=== PATIENT | female | born 1960 | race Caucasian/White ===

== ENCOUNTER 2017-08-16 05:52 | Inpatient (IN) ==
--- NOTE | 2017-08-15 13:51 | Anesthesia Evaluation PreOp ---
Date of Encounter: 08/16/17 Time of Encounter: 06:56 - Past History Planned Operation: pericardial window Cardiac History: HTN, Hyperlipidemia, Other (pericardial effusion, mild pulmonary hypertension) Pulmonary History: Former smoker, COPD, BRITTANY Dx (BiPap 12) BEEF BREAKER History: Other (diabetic neuropathy b/l LE) Other Medical History: Diabetes Type II, Other (morbid obesity) Anesthesia History: No Prior Anesthetic Complications, Past Anesthesia ( ganglion cyst, foot surgery, C/S, tubal) : No Alcohol Use: none Drug use: none Medications and Allergies Atorvastatin [Lipitor] 40 mg PO HS 10/05/15 [History] Cholecalciferol (D-3) [Vitamin D] 2,000 unit PO DAILY 10/05/15 [History] Furosemide [Lasix] 20 mg PO DAILY 10/05/15 [History] Insulin Human Regular [HumuLIN R] 15 - 26 unit SQ ACHS 10/05/15 [History] Latanoprost [Xalatan] 1 drop BOTH EYES HS 10/05/15 [History] Levothyroxine [Synthroid] 25 mcg PO DAILY 10/05/15 [History] Losartan Potassium [Cozaar] 50 mg PO DAILY 10/05/15 [History] Naproxen [Naprosyn] 500 mg PO BID PRN 10/05/15 [History] Omeprazole [PriLOSEC] 20 mg PO DAILY 10/05/15 [History] Metformin HCl [Metformin HCl ER] 500 mg PO DAILY 01/12/17 [History] Pregabalin [Lyrica] 100 mg PO TID 01/12/17 [History] Sitagliptin Phos/Metformin HCl [Janumet Xr 100-1,000 mg Tablet] 1 cap PO DAILY 01/12/17 [History] Insulin Degludec [Tresiba Flextouch U-100] 34 - 36 unit SQ 0200,1400 08/16/17 [ History] 3 Allergy/AdvReac Type Severity Reaction Status Date / Time Penicillins AdvReac Severe Vomiting Verified 07/19/17 17:37 gabapentin [From Neurontin] AdvReac Intermediate Swelling Verified 07/19/17 17: 37 of Lip/Tongue/Throat acetaminophen [From Percocet] AdvReac Drowsy Verified 07/19/17 17:37 Oxycodone [From Percocet] AdvReac Drowsy Verified 07/19/17 17:37 - Meds/Allergy Pre-op Review Medications Reviewed: Yes Allergies Reviewed: Yes Beta Blockers on Current Med List: No Anesthesia Results - Labs Laboratory Tests 07/19/17 07/19/17 18:59 18:59 Hgb 12.9 Hct 40.6 Plt Count 200 Sodium 141 Potassium 3.4 L BUN 20 Creatinine 0.80 - Imaging Additional studies: echo: Impressions: LVEF 65%. Mild left ventricular diastolic dysfunction. Definity echo contrast was used. Mildly dilated RV with normal function. Mild-moderate tricuspid regurgitation. Borderline pulmonary hypertension. There is a moderate to large pericardial effusion present measuring the largest along the inferior border of the LV. There is no definite echocardiographic evidence of tamponade (Normal BP, normal IVC size and collapse, possible RA collapse present). Findings communicated to ordering provider. Recommend correlate clinically. Anesthesia Exam Selected Entries 08/16/17 06:20 Temperature 98.1 F Pulse Rate 87 Respiratory Rate 18 Blood Pressure 127/62 O2 Sat by Pulse Oximetry 94 Weight: BMI 52 138kg NPO (# of Hours): 8 - HEENT Pupil (Motor): EOMI Mallampati: III Teeth: Missing, Edentulous (upper), Poor dentition Oral Opening: Less than or equal to 3 - BEEF BREAKER LOC: Oriented BEEF BREAKER Motor: Normal RUE, Normal LUE, Normal RLE, Normal LLE, Normal Face BEEF BREAKER Sensory: Normal: RUE, LUE, RLE, LLE, Face - Cardiac Rhythm: Regular Murmur: None - Pulmonary Breath Sounds: bilateral Clear Respiratory Effort: Symmetrical Anesthesia Assess/Plan ASA Score: 3 Modified Danilo Scale for Level of Consciousness: Cooperative, oriented, and tranquil Anesthetic Plan: General Monitoring Plan: Standard Monitors, A-Line Recovery Plan: PACU (agrees to proceed)
[2017-08-16] MEDS ORDERED: Albuterol 2.5 MG/3 ML NEBULIZER IH ONE (06:20)
[2017-08-16] MEDS ORDERED: Ringers Solution, Lactated 1,000 ML IVC SCH ×3 (06:30→10:38)
[2017-08-16] MEDS ORDERED: *HR* PHENYLEPHRINE 1,000 MCG/10 ML SYRINGE IVP ONE (07:06)
[2017-08-16] MEDS ORDERED: *HR* Midazolam HCl 5 MG/5 ML VIAL IVP ONE (07:06)
[2017-08-16] MEDS ORDERED: *HR* Propofol 200 MG/20 ML VIAL IVP ONE (07:06)
[2017-08-16] MEDS ORDERED: *HR* Rocuronium Bromide 50 MG/5 ML VIAL ONE (07:06)
[2017-08-16] MEDS ORDERED: *HR* FentaNYL (PF) 250 MCG/5 ML VIAL ONE (07:06)
[2017-08-16] MEDS ORDERED: Lidocaine -MPF 1% 2 ML VIAL ONE (07:09)
[2017-08-16] MEDS ORDERED: Clindamycin 600 MG/50 ML 600 MG/50 ML IV.SOLN IVPB ONE (07:09)
[2017-08-16] MEDS ORDERED: Heparin 1,000 UNITS/500 mL 500 ML ONE (07:10)
--- NOTE | 2017-08-16 07:28 | History & Physical Report ---
Date of Encounter: 08/16/17 Time of Encounter: 07:28 24 Hour HP Update - Instructions Instructions: If the History and Physical is less than 30 days old and was completed prior to A.M. admission and or procedure and has NOT been updated on calendar day of procedure please complete this update prior to performing procedure. - Update Patient reports changes in Medical Condition: No Changes in examination, assessment, or condition: No Changes in Medication: No Preop tests/diagnostics Reviewed: Yes Pre-Op MRSA Screen: Negative Surgery Remains Indicated: Yes Consent for Planned Operative Procedure(s) Verified: Yes - Pre-Operative Checklist Preoperative Checklist Indicated: Yes Prophylactic Antibiotic Ordered: Yes Home Medications Include Beta Hermelinda: Yes Beta Hermelinda Taken Today (Day of Surgery): Yes Beta Hermelinda Taken Yesterday (Day Prior to Surgery): Yes Is VTE Prophylaxis Indicated?: Yes
--- NOTE | 2017-08-16 08:46 | Anesthesia Procedures ---
Date of Encounter: 08/16/17 Time of Encounter: 07:55 Procedures: Anesthesia - Arterial Line Consent obtained: written consent Time out performed: Yes Sedation: Versed (mg): 3 Sedation: Fentanyl (mcg): 100 Supplemental Oxygen via Nasal Cannula (L/min): 4 Size (Gauge): 20 Length (inches): 1 3/4 Technique Used: sterile prep, guide wire technique, direct puncture technique Post-Procedure: line taped into place, dry sterile dressing placed Patient tolerated procedure: well, no complications Complications: none Site: Radial L
[2017-08-16] MEDS ORDERED: Ondansetron 4 MG/2 ML VIAL ONE (08:50)
[2017-08-16] MEDS ORDERED: Dexamethasone 4 MG/ML VIAL ONE (08:50)
[2017-08-16] MEDS ORDERED: *HR* OxyCODONE/APAP 5/325 TABLET PO PRN (09:28)
[2017-08-16] MEDS ORDERED: Ketorolac 15 MG/ML VIAL IVP ONE (09:40)
[2017-08-16] MEDS ORDERED: Ketorolac 30 MG/ML VIAL IVP ONE (09:40)
[2017-08-16] MEDS ORDERED: Ondansetron 4 MG/2 ML VIAL IVP ONE ×2 (09:40→10:38)
[2017-08-16] MEDS ORDERED: Acetaminophen IV 1,000 MG/100 ML INFUS..BTL IVPB ONE (09:40)
[2017-08-16] MEDS ORDERED: Ondansetron 4 MG/2 ML VIAL IVP PRN ×2 (09:54→10:38)
[2017-08-16] MEDS ORDERED: Naloxone 0.4 MG/ML INJ IVP PRN ×3 (09:54→10:38)
[2017-08-16] MEDS ORDERED: *HR* OxyCODONE Immed Rel 5 MG TABLET PO PRN (09:58)
--- NOTE | 2017-08-16 10:04 | Operative Note ---
Date of procedure: 08/16/17 Was there an hotel assistant general manager present: No Estimated blood loss (cc): 20 Specimen: pericardium Condition: stable Disposition: PACU Procedure in Detail: Preoperative diagnosis. Pericardial effusion. Postoperative diagnosis. Same. Procedures. Subxiphoid pericardial window with removal of 400 mL of serosanguineous fluid. Also, pericardial biopsy. Surgeon. Dr. Neeraj Chaudhari. The patient is a 56-year-old female who presented with a pericardial effusion. She was referred for drainage. She was brought to the operating room where she underwent a general anesthetic and was prepped and draped in standard fashion. A standard subxiphoid incision was made. This was carried down using the Bovie electrocoagulation to the xiphoid process. We dissected underneath the xiphoid process and a retractor was placed. Dissection continued up to the pericardium. He was opened with a #15 blade. 400 mL of serosanguineous fluid was obtained. Some of the fluid was sent for cultures including aerobic, anaerobic, TB and fungus. Fluid was also sent for cytology. A finger was inserted. There was no tumor and no adhesions. A 32 right angle chest tube was placed in the pericardial well. Fascia was run with #1 Vicryl. Subcutaneous tissues with a 2-0 Vicryl. Skin was closed with 3-0 Vicryl subcuticular stitch. The patient tolerated the procedure well and was returned recovery room in satisfactory and stable condition.
--- NOTE | 2017-08-16 10:26 | Anesthesia Evaluation Post Op ---
Date of Encounter: 08/16/17 Time of Encounter: 10:25 - Vital Signs Vital Signs: Selected Entries 08/16/17 09:37 08/16/17 09:57 Temperature 98.0 F Pulse Rate 88 Respiratory Rate 15 Blood Pressure 160/89 O2 Sat by Pulse Oximetry 97 Oxygen Flow Rate (LPM) 35 - Lungs Lungs: Clear Ascult./Percussion - Airway Airway: Non-obstructed - Cardiovascular Regular Rate - Mental Status Mental Status: Alert & Oriented, Answers Appropriately - Pain Pain Scale: 2 Pain Scale used: Numeric (1 - 10) - Nausea Vomiting Nausea Vomiting: Not Present - Hydration Hydration: Ice chips, Has not voided - Discharge PostOp Status: Transfer Patient to floor
[2017-08-16] MEDS ORDERED: *HR* Dextrose 50 % in Water (Syg) 50 ML SYRINGE IVP PRN (10:38)
[2017-08-16] MEDS ORDERED: Dextrose Gel 15 GM/37.5 ML TUBE PO PRN ×2 (10:38)
[2017-08-16] MEDS ORDERED: D5% in Water 1,000 ML IVC PRN (10:38)
[2017-08-16 11:17] LABS: Basophils # 0.1 K/mcL (0.0-0.2); Basophils % 0.7 %; Eosinophils # 0.1 K/mcL (0.0-0.6); Eosinophils % 0.7 %; Hematocrit 43.9 % (35.3-44.9); Hemoglobin 13.7 g/dL (11.5-15.4); Lymphocytes # 1.3 K/mcL (0.6-4.6); Lymphocytes % 12.1 %; Mean Corpuscular HGB Conc 31.2 g/dL (31.6-35.5); Mean Corpuscular Hemoglobin 28.8 pg (28.0-33.3); Mean Corpuscular Volume 92.4 fL (83.0-100.0); Mean Platelet Volume 11.1 fL (9.4-12.4); Monocytes # 0.4 K/mcL (0.0-1.3); Monocytes % 3.9 %; Neutrophils # 8.5 K/mcL (1.6-8.9); Platelet Count 146 K/mcL (140-400); Red Blood Count 4.75 M/mcL (3.82-4.97); Red Cell Distribution Width 15.4 % (11.5-14.5); Segmented Neutrophils % 81.6 %
[2017-08-16] MEDS: Insulin LISPRO 300 UNITS/3 ML VIAL SQ SCH ×3 (12:13→21:14)
[2017-08-16] MEDS: *HR* OxyCODONE Immed Rel 5 MG TABLET PO PRN ×2 (14:13→21:13)
[2017-08-16] MEDS ORDERED: Pregabalin 50 MG CAPSULE PO SCH (15:00)
[2017-08-16] MEDS: Clindamycin 900 MG/50 ML 900 MG/50 ML IV.SOLN IVPB SCH (15:21)
[2017-08-16] MEDS ORDERED: Clindamycin 900 MG/50 ML 900 MG/50 ML IV.SOLN IVPB SCH (16:00)
[2017-08-16] MEDS: Ringers Solution, Lactated 1,000 ML IVC SCH (21:38)
[2017-08-17] MEDS: Pregabalin 50 MG CAPSULE PO SCH ×4 (00:14→22:38)
[2017-08-17] MEDS: Latanoprost 2.5 ML BOTTLE BOTH EYES SCH ×2 (00:15→22:38)
[2017-08-17] MEDS: Clindamycin 900 MG/50 ML 900 MG/50 ML IV.SOLN IVPB SCH (00:16)
[2017-08-17] MEDS: *HR* OxyCODONE Immed Rel 5 MG TABLET PO PRN ×3 (02:04→21:26)
[2017-08-17] MEDS: TRESIBA FLEXTOUCH U-100 SQ SCH ×2 (02:05→14:14)
[2017-08-17 05:39] LABS: Basophils % 0.3 %; Eosinophils % 0.1 %; Hemoglobin 13.7 g/dL (11.5-15.4); Immature Granulocytes % 0.3 % (0-4); Lymphocytes # 1.5 K/mcL (0.6-4.6); Mean Corpuscular HGB Conc 31.9 g/dL (31.6-35.5); Mean Corpuscular Hemoglobin 28.4 pg (28.0-33.3); Mean Corpuscular Volume 89.2 fL (83.0-100.0); Mean Platelet Volume 11.6 fL (9.4-12.4); Monocytes # 1.4 K/mcL (0.0-1.3); Monocytes % 9.2 %; Neutrophils # 12.1 K/mcL (1.6-8.9); Platelet Count 160 K/mcL (140-400); Red Blood Count 4.82 M/mcL (3.82-4.97); Red Cell Distribution Width 15.2 % (11.5-14.5); Segmented Neutrophils % 80.1 %
[2017-08-17 06:01] LABS: BUN/Creatinine Ratio 26 (6-26); Blood Urea Nitrogen 22 mg/dL (6-20); Calcium 8.7 mg/dL (8.6-10.3); Carbon Dioxide 25 mEq/L (23-29); Chloride 106 mEq/L (98-107); Glucose 303 mg/dL (70-105); Osmolality,Calculated 301 (280-300); Sodium 138 mEq/L (136-145); eGFR For African Americans > 60 (> 60); eGFR For Non-African Americans > 60 (> 60)
--- NOTE | 2017-08-17 07:26 | Cardiothoracic Progress Note ---
Date of Encounter: 08/17/17 Time of Encounter: 07:24 - Assessment and plan (1) Pericardial effusion Current Visit: Yes Status: Acute The assessment and plan as outlined above was discussed with the patient and/or family members who expressed understanding and agreement. All questions were answered. Hopefully, we can remove the chest tube tomorrow and the patient can be discharged. - Subjective Interval history: The patient states that she prefers to control her own blood sugars and give her own insulin. Vital Signs, Last 4 Hours Temp Pulse Resp BP Pulse Ox 08/17/17 07:17 97.8 F 80 18 113/42 92 08/17/17 04:08 98.3 F 71 16 115/54 92 Oxgyen Flow Rate Oxygen Flow Rate (LPM) 2 Clinical Data, last 8 Hours Output, Chest Tube Drainage 50 Amount [Anterior Chest #1] Output, Chest Tube Drainage 38 Amount [Anterior Chest #1] Weight 08/15/17 08/16/17 08/17/17 23:59 23:59 23:59 Weight 138.346 kg 139.9 kg Lungs are clear to percussion and auscultation. Heart is in a normal sinus rhythm with good heart tones. Chest tube drainage is minimal. Chest x-ray reveals no pneumothorax. - Labs 08/17/17 05:19 08/17/17 05:19 Lab Results, Last 24 hours 08/16/17 08/17/17 08/17/17 11:08 05:19 05:19 WBC 10.4 15.1 H Hgb 13.7 13.7 Hct 43.9 43.0 Plt Count 146 160 Sodium 138 Potassium 4.0 Chloride 106 Carbon Dioxide 25 BUN 22 H Creatinine 0.85 Glucose 303 H Calcium 8.7 - VTE Documentation of Mechanical Device: Intermittent pneumatic compression device Consult Discharge Plan - Plan Referrals: Art Cardona DO [Resident] - 08/25/17 10:15 am Neeraj Chaudhari MD [Partnered Physician] - 09/07/17 1:30 pm
[2017-08-17] MEDS: *HR* Metformin 500 MG TABLET PO SCH ×2 (08:06→17:33)
[2017-08-17] MEDS: Insulin LISPRO 300 UNITS/3 ML VIAL SQ SCH ×4 (08:06→21:05)
[2017-08-17] MEDS: Furosemide 20 MG TABLET PO SCH (08:07)
[2017-08-17] MEDS ORDERED: *HR* SitaGLIPtin 100 MG TABLET PO SCH (09:00)
[2017-08-17] MEDS ORDERED: *HR* Metformin 500 MG TABLET PO SCH (09:00)
[2017-08-17] MEDS ORDERED: NON-FORMULARY MEDICATION 1 EACH EACH (Sitagliptin Phos/Metformin Hcl [Janumet Xr 100-1,000 PO SCH (09:00)
[2017-08-17] MEDS: Levothyroxine 25 MCG TABLET PO SCH (11:05)
[2017-08-17] MEDS: Ringers Solution, Lactated 1,000 ML IVC SCH (21:01)
[2017-08-18] MEDS ORDERED: *HR* Metformin 500 MG TABLET PO SCH ×2
[2017-08-18] MEDS ORDERED: *HR* SitaGLIPtin 100 MG TABLET PO SCH
[2017-08-18] MEDS ORDERED: Latanoprost 2.5 ML BOTTLE BOTH EYES SCH
[2017-08-18] MEDS: Pregabalin 50 MG CAPSULE PO SCH ×2 (00:21→08:24)
[2017-08-18] MEDS: TRESIBA FLEXTOUCH U-100 SQ SCH (02:19)
[2017-08-18] MEDS: *HR* OxyCODONE Immed Rel 5 MG TABLET PO PRN ×2 (02:26→08:38)
[2017-08-18] MEDS: Insulin LISPRO 300 UNITS/3 ML VIAL SQ SCH (08:49)
[2017-08-18] MEDS: Furosemide 20 MG TABLET PO SCH (08:50)
--- NOTE | 2017-08-18 09:13 | Discharge Summary ---
Orders not resulted at time of discharge: Pending orders 08/14/17 14:41 Red Blood Cells [BBK] Routine 08/16/17 08:38 AFB Culture, Body Fluid [TB] Routine Culture,Anaerobic [RM] Routine Culture,Body Fluid [RM] Routine Fungal Culture [MYC] Routine 08/16/17 08:39 Cytology [PTH] Routine 08/16/17 08:50 Surgical Pathology [PTH] Routine Date of Encounter: 08/18/17 Time of Encounter: 09:07 - Discharge Diagnosis (1) Pericardial effusion Priority: Primary Status: Acute - Hospital Course Hospital course: Ms. Suresh is a 56 year old female The patient is a 56-year-old female with a history of diabetes. She presented with a pericardial effusion which and been followed for 1 year. On 08/16/2017, I took her to the operating room for pericardial window with drainage of 400 mL of serosanguineous fluid and pericardial biopsy. The patient tolerated this procedure well. Postoperatively, she was placed on 2 N. On August 18 her chest tube was removed. Lungs were clear to percussion and auscultation. Heart was in a normal sinus rhythm with good heart tones. Her incision was healing well without signs of infection. 2 chest x-rays had revealed no pneumothorax. The patient's medications are on the [employer]. The only new medication was oxycodone for pain. I did check the [place] automated Rx reporting system. She was postoperative and was given a one-week supply. Appropriate precautions were given. She was treated to her and to her previous diabetic diet. She was to walk as much as possible, but to avoid heavy lifting for a total of 3 months after surgery. She was to avoid driving for 1 month. She was to follow-up and see me in the office in 4 weeks as directed. She was to follow up with her primary care doctor, her optician apprentice dispensing and her sewing machine assembler as directed. - Time Spent with Patient Total time spent providing and/or coordinating discharge services: - Discharge Medications Prescriptions: OxyCODONE Immed Rel [Roxicodone 5 MG] 5 mg PO Q4HR PRN 7 Days #20 tablet PRN Reason: Pain Home Medications: Atorvastatin [Lipitor] 40 mg PO HS 10/05/15 [History] Cholecalciferol (D-3) [Vitamin D] 2,000 unit PO DAILY 10/05/15 [History] Furosemide [Lasix] 20 mg PO DAILY 10/05/15 [History] Insulin Human Regular [HumuLIN R] 15 - 26 unit SQ ACHS 10/05/15 [History] Latanoprost [Xalatan] 1 drop BOTH EYES HS 10/05/15 [History] Levothyroxine [Synthroid] 25 mcg PO DAILY 10/05/15 [History] Losartan Potassium [Cozaar] 50 mg PO DAILY 10/05/15 [History] Naproxen [Naprosyn] 500 mg PO BID PRN 10/05/15 [History] Omeprazole [PriLOSEC] 20 mg PO DAILY 10/05/15 [History] Metformin HCl [Metformin HCl ER] 500 mg PO DAILY 01/12/17 [History] Pregabalin [Lyrica] 150 mg PO TID 01/12/17 [History] Sitagliptin Phos/Metformin HCl [Janumet Xr 100-1,000 mg Tablet] 1 cap PO DAILY 01/12/17 [History] Insulin Degludec [Tresiba Flextouch U-100] 34 - 36 unit SQ 0200,1400 08/16/17 [ History] Atorvastatin [Lipitor] 40 mg PO 0000 tablet 08/18/17 [Rx] OxyCODONE Immed Rel [Roxicodone 5 MG] 5 mg PO Q4HR PRN 7 Days #20 tablet [Rx] Patient Taking Own Medication 36 each SQ 0200,1400 each 08/18/17 [Rx] metFORMIN [Glucophage] 1,000 mg PO 0000 tablet 08/18/17 [Rx] Allergies/Adverse Reactions: 3 Allergy/AdvReac Type Severity Reaction Status Date / Time gabapentin [From Neurontin] Allergy Intermediate Swelling Verified 08/16/17 11: 20 of Lip/Tongue/Throat Penicillins AdvReac Severe Vomiting Verified 07/19/17 17:37 Oxycodone [From Percocet] AdvReac Drowsy Verified 08/16/17 11:21 Date of admission: 08/16/17 10:26 Primary care physician: Fred Sanchez DO Consults: 08/16/17 09:54 Consult to Executive Secretary [CONS] Routine Reason for SW Consult: pericardial window Procedure(s) Performed: 08/16/2017. Subxiphoid pericardial window with removal of 400 mL of serosanguineous fluid and pericardial biopsy. Discharging clinician: Neeraj Chaudhari Anticipated date of discharge: 08/18/17 Physical Examination Vital Signs, Last 4 Hours Temp Pulse Resp BP Pulse Ox 08/18/17 07:22 98.9 F 76 18 96/57 95 - Patient Status Disposition: Home, Self-Care Condition: Fair Functional capacity at discharge: independent ambulation Overall status at discharge: patient is progressing back to baseline - Discharge Instructions Follow Up With: Art Cardona DO [Resident] - 08/25/17 10:15 am Neeraj Chaudhari MD [Partnered Physician] - 09/07/17 1:30 pm - VTE Documentation of Mechanical Device: Intermittent pneumatic compression device
[2017-08-18] MEDS: Levothyroxine 25 MCG TABLET PO SCH (10:57)
[2017-08-18 11:14] VITALS: BP 105/76
== END 2017-08-18 13:29 | disposition home or self-care (01) | DRG 271 ==
LOC: SAMDAY 05:52 → 2NNU 10:26
PROVIDERS: ADMIT Thoracic Surgery (Cardiothoracic Vascular Surgery); ATTEND Thoracic Surgery (Cardiothoracic Vascular Surgery)